=== PATIENT | female | born 1980 | race Two or more races ===

== ENCOUNTER 2019-06-13 07:53 | Emergency (ER) | payer OTHER ==
[2019-06-13 08:00] VITALS: TEMP 98.1; BMI 54.1
[2019-06-13 09:15] LABS: BASO % 0.5 % (0-2.0); HEMATOCRIT 37.3 % (32.4-45.2); LYMPH % 19.9 % (8-40); MCH 27.7 pg (25.7-33.7); MCHC 32.2 g/dl (32.0-36.0); MEAN CELL VOLUME 85.9 fl (80-96); MEAN PLT VOLUME 11.3 fl (7.5-11.1); MONO % 5.4 % (3.8-10.2); NEUT % 71.2 % (42.8-82.8); PLATELET COUNT 260 K/MM3 (134-434); RBC 4.34 M/mm3 (3.60-5.2); WHITE BLOOD COUNT 6.9 K/mm3 (4.0-10.0)
[2019-06-13] MEDS ORDERED: morphine CARPU-JECT 2 MG/1 ML DISP.SYRIN IM ONE (09:27)
[2019-06-13] MEDS ORDERED: ONDANSETRON *ODT* 4 MG TABLET SL ONE (09:27)
--- NOTE | 2019-06-13 09:33 | PDOC ---
History of Present Illness - General History Source: Patient Exam Limitations: Clinical Condition - History of Present Illness Initial Comments: 06/13/19 09:28 Patient with no significant past medical history LMP April 04 presented with complaint of vaginal bleeding soaking 1 pad since this morning. Patient reported having ultrasound done 2 weeks ago for which she is supposed to be 9 weeks by ultrasound 2 weeks ago shows early gestational sac and yolk sac with intrauterine . Patient has not had any follow-up since her visit 2 weeks ago. Denies fever, chills, weakness, palpitation, chest pain, shortness of breath, dizziness. Denies any other symptoms Is this a multiple visit Asthma Patient?: No Timing/Duration: 4-6 hours <Mike Perez - Last Filed: 06/13/19 12:50> <Kelvin Jauregui - Last Filed: 06/13/19 16:01> - General Chief Complaint: Vaginal Bleeding Stated Complaint: VAGINAL BLEEDING/9WKS Time Seen by Provider: 06/13/19 08:41 Past History - Past Medical History COPD: No HTN: No - Reproductive History Is Patient Now?: Yes (#): 5 Para: 3 Therapeutic (s) & number: No Spontaneous : 1 - Immunization History Immunization Up to Date: Yes - Psycho Social/Smoking Cessation Hx Smoking History: Never smoked Have you smoked in the past 12 months: No Information on smoking cessation initiated: No Hx Alcohol Use: No Drug/Substance Use Hx: No Substance Use Type: None <Mike Perez - Last Filed: 06/13/19 12:50> <Kelvin Jauregui - Last Filed: 06/13/19 16:01> - Past Medical History Allergies/Adverse Reactions: Allergies Allergy/AdvReac Type Severity Reaction Status Date / Time No Known Allergies Allergy Verified 06/18/16 08:02 Home Medications: Ambulatory Orders Vit 93/Iron Fum/Folic [ Formula Tablet] 1 each PO DAILY Review of Systems - Review of Systems Able to Perform ROS?: Yes Is the patient limited Russian proficient: No Constitutional: No: Malaise, Weakness HEENTM: No: Symptoms Reported Respiratory: No: Symptoms reported Cardiac (ROS): No: Symptoms Reported ABD/GI: Yes: Symptoms Reported, Nausea, Abdominal cramping (cramping lower abdominal pain). No: Vomiting : No: Burning, Dysuria, Discharge, Frequency Musculoskeletal: No: Symptoms Reported Integumentary: No: Symptoms Reported Neurological: No: Headache, Weakness, Dizziness All Other Systems: Reviewed and Negative <Mike Perez - Last Filed: 06/13/19 12:50> *Physical Exam - Vital Signs Last Vital Signs Temp Pulse Resp BP Pulse Ox 98.1 F 89 18 128/67 99 06/13/19 07:57 06/13/19 07:57 06/13/19 07:57 06/13/19 07:57 06/13/19 07:57 - Physical Exam General Appearance: Yes: Nourished, Appropriately Dressed, Apparent Distress, Mild Distress HEENT: positive: Normal ENT Inspection Neck: positive: Supple Respiratory/Chest: positive: Lungs Clear, Normal Breath Sounds. negative: Respiratory Distress, Accessory Muscle Use Cardiovascular: positive: Regular Rhythm, Regular Rate Female Pelvic Exam: positive: normal external exam, cervical os closed, normal adnexa, vaginal bleeding (small amount of blood in vaginal vault. no active bleeding or blood pooling). negative: adnexal tenderness Gastrointestinal/Abdominal: positive: Normal Bowel Sounds, Tender (mild TTP over suprapubic region). negative: Guarding, Rebound, Hepatomegaly, Spleenomegaly Integumentary: positive: Normal Color Neurologic: positive: Fully Oriented, Alert, Normal Mood/Affect, Normal Response <Mike Perez - Last Filed: 06/13/19 12:50> - Vital Signs Last Vital Signs Temp Pulse Resp BP Pulse Ox 98.1 F 75 18 123/74 99 06/13/19 07:57 06/13/19 12:25 06/13/19 12:25 06/13/19 12:25 06/13/19 12:25 <Kelvin Jauregui - Last Filed: 06/13/19 16:01> ED Treatment Course - LABORATORY CBC & Chemistry Diagram: 06/13/19 09:00 06/13/19 09:00 - ADDITIONAL ORDERS Additional order review: 06/13/19 09:00 RBC 4.34 MCV 85.9 MCHC 32.2 RDW 15.0 MPV 11.3 H Neutrophils % 71.2 Lymphocytes % 19.9 Monocytes % 5.4 Eosinophils % 3.0 Basophils % 0.5 - RADIOLOGY Radiology Studies Ordered: Category Date Time Status TRANSVAGINAL US PREG [US] Stat Ultrasound 06/13/19 09:22 Ordered <AnaMike Sanders - Last Filed: 06/13/19 12:50> - LABORATORY CBC & Chemistry Diagram: 06/13/19 09:00 06/13/19 09:00 - ADDITIONAL ORDERS Additional order review: Laboratory Results 06/13/19 06/13/19 09:00 09:00 Sodium 141 Potassium 3.5 Chloride 108 H Carbon Dioxide 27 Anion Gap 6 L BUN 9.2 Creatinine 0.6 Est GFR (CKD-EPI)AfAm 132.14 Est GFR (CKD-EPI)NonAf 114.01 Random Glucose 99 Calcium 8.7 Total Bilirubin 0.2 AST 10 L ALT 22 Alkaline Phosphatase 87 Total Protein 7.0 Albumin 3.6 Beta HCG, Quant 6224.6 Blood Type B POSITIVE Antibody Screen Negative 06/13/19 09:00 RBC 4.34 MCV 85.9 MCHC 32.2 RDW 15.0 MPV 11.3 H Neutrophils % 71.2 Lymphocytes % 19.9 Monocytes % 5.4 Eosinophils % 3.0 Basophils % 0.5 - Medications Given in the ED: ED Medications Discontinued Medications Generic Name Dose Route Start Last Admin Trade Name Freq PRN Reason Stop Dose Admin Acetaminophen 975 mg 06/13/19 10:55 06/13/19 11:25 Tylenol - PO 06/13/19 10:56 975 mg ONCE ONE Administration Sodium Chloride 500 mls @ 500 mls/hr 06/13/19 10:35 06/13/19 11:39 Normal Saline - IV 06/13/19 11:34 Not Given ASDIR STA Morphine Sulfate 2 mg 06/13/19 09:27 06/13/19 10:20 Morphine Injection - IM 06/13/19 09:28 Not Given ONCE ONE Ondansetron HCl 4 mg 06/13/19 09:27 06/13/19 10:21 Zofran Odt - SL 06/13/19 09:28 4 mg ONCE ONE Administration <Kelvin Jauregui - Last Filed: 06/13/19 16:01> Medical Decision Making - Medical Decision Making 06/13/19 09:30 Patient with no significant past medical history LMP April 04 presented with complaint of vaginal bleeding soaking 1 pad since this morning. Patient reported having ultrasound done 2 weeks ago for which she is supposed to be 9 weeks by ultrasound 2 weeks ago shows early gestational sac and yolk sac with intrauterine . Patient has not had any follow-up since her visit 2 weeks ago. Denies fever, chills, weakness, palpitation, chest pain, shortness of breath, dizziness. Denies any other symptoms Exam significant for small amount of blood in vaginal vault with no blood pooling. Cervical os closed. No cervical motion tenderness. Symptoms likely threatened . CBC, CMP, beta-hCG, type and screen labs ordered. Transvaginal ultrasound ordered to evaluate . Morphine 2 mg IM ordered for pain 06/13/19 12:50 CBC and CMP labs unremarkable. Beta-hCG 6300. Transvaginal ultrasound shows low-lying gestational and yolk sac in the lower uterine segment. Patient symptoms consistent with inevitable . Called and spoke to [employer]LYST Dr. Glez who advised patient can follow-up on outpatient in clinic. Bleeding precautions given to patient including worsening bleeding with dizziness, severe abdominal pain with advised to come back if symptoms worsens. Patient voiced understanding and will follow-up with her OB in the morning. Patient stable for discharge <Mike Perez - Last Filed: 06/13/19 12:50> - Medical Decision Making 06/13/19 16:01 I reviewed the case of the mid-level practitioner and was available for consultation while in the emergency department <Kelvin Jauregui - Last Filed: 06/13/19 16:01> Discharge - Discharge Information Problems reviewed: Yes - Admission No <Mike Perez - Last Filed: 06/13/19 12:50> <Kelvin Jauregui - Last Filed: 06/13/19 16:01> - Discharge Information Clinical Impression/Diagnosis: Threatened Condition: Stable Disposition: HOME - Follow up/Referral Referrals: Miya Gardner MD [Staff Physician] - - Patient Discharge Instructions Patient Printed Discharge Instructions: DI for Threatened Additional Instructions: Your ultrasound shows low-lying in the lower uterine section which is an indication that you could have an any day. Keep using pad to help with bleeding. Follow-up with your SOFTWARE QUALITY ANALYST tomorrow for reassessment as discussed - Post Discharge Activity Work/Back to School Note: Back to Work
[2019-06-13 10:03] LABS: ALBUMIN 3.6 g/dl (3.4-5.0); BILIRUBIN,TOTAL 0.2 mg/dL (0.2-1); BLOOD UREA NITROGEN 9.2 mg/dL (7-18); CALCIUM 8.7 mg/dL (8.5-10.1); CREATININE 0.6 mg/dL (0.55-1.3); POTASSIUM 3.5 mmol/L (3.5-5.1)
[2019-06-13] MEDS ORDERED: ONDANSETRON *ODT* 4 MG TABLET ONE (10:13)
[2019-06-13] MEDS ORDERED: MORPHINE SULFATE 2 MG/ML VIAL ONE (10:13)
[2019-06-13] MEDS ORDERED: ACETAMINOPHEN 325 MG TABLET (FP) PO ONE ×2 (10:22→10:55)
[2019-06-13] MEDS ORDERED: ACETAMINOPHEN 1000 MG/100 ML VIAL (NON FORMULARY) IVPB ONE (10:35)
[2019-06-13] MEDS ORDERED: SODIUM CHLORIDE 500 ML IV STA (10:35)
[2019-06-13] MEDS ORDERED: ACETAMINOPHEN 325 MG TABLET (FP) ONE (11:13)
[2019-06-13 12:26] VITALS: BP 123/74; PULSE 75
== END 2019-06-13 12:26 | disposition home or self-care (01) ==
LOC: JER 07:53
DX: O26.891 Other specified pregnancy related conditions, first trimester (principal); O20.0 Threatened abortion; Z3A.01 Less than 8 weeks gestation of pregnancy
CPT/HCPCS: 36415; 76817-TC; 80053; 84702; 85025; 86850; 86900; 86901; 99283-25; Q0162